=== PATIENT | female | born 1935 | race Caucasian/White ===

== ENCOUNTER 2018-05-28 13:42 | Outpatient (RCR) | payer MEDICARE, BC | END 2018-06-12 16:07 | disposition home or self-care (01) | PROVIDERS: ATTEND Internal Medicine | DX: M54.5 Low back pain (principal); Z86.73 Personal history of transient ischemic attack (TIA), and cerebral infarction without residual deficits ==

== ENCOUNTER → 2023-03-15 | Outpatient (RCR) | payer MEDICARE | END | disposition home or self-care (01) | PROVIDERS: ATTEND Nurse Practitioner Family | DX: S32.501D Unspecified fracture of right pubis, subsequent encounter for fracture with routine healing (principal); S32.9XXS Fracture of unspecified parts of lumbosacral spine and pelvis, sequela ==

== ENCOUNTER 2023-03-18 15:54 | Outpatient (RCR) | payer MEDICARE | END 2023-04-15 | disposition home or self-care (01) | PROVIDERS: ATTEND Nurse Practitioner Family | DX: S32.501D Unspecified fracture of right pubis, subsequent encounter for fracture with routine healing (principal); S32.9XXS Fracture of unspecified parts of lumbosacral spine and pelvis, sequela ==

== ENCOUNTER → 2023-04-02 | Outpatient (CLI) | payer MEDICARE ==
--- NOTE | 2023-04-02 13:38 | Diagnostic Imaging Report ---
PROCEDURE: US Renal Bilateral. TECHNIQUE: Multiple Real-time grayscale images were obtained over the kidneys in various projections bilaterally. INDICATION: Chronic kidney disease. FINDINGS: The right kidney is 8.5 cm and the left 8.7 cm. No hydronephrosis. There is either left pelviectasis versus a parapelvic cyst measuring 1.2 cm transverse. There is a 1.6 x 2.0 cm cyst in the midpole of the left renal cortex. No subcapsular or perinephric fluid collection. The urinary bladder had a volume of 182 mL with no post void residual. IMPRESSION: Simple left renal cyst. Either mild left renal pelvic dilatation without hydronephrosis versus exophytic parapelvic cyst. No stone. No vascularized or solid mass. No post void residual. Dictated by: Dictated on workstation # [id number]
== END ==
LOC: RAD 12:14
PROVIDERS: ATTEND Internal Medicine Nephrology
DX: N28.1 Cyst of kidney, acquired (principal); I12.9 Hypertensive chronic kidney disease with stage 1 through stage 4 chronic kidney disease, or unspecified chronic kidney disease; N18.31 Chronic kidney disease, stage 3a; C44.41 Basal cell carcinoma of skin of scalp and neck; M81.0 Age-related osteoporosis without current pathological fracture; R60.0 Localized edema; R53.83 Other fatigue; N31.8 Other neuromuscular dysfunction of bladder; Z86.79 Personal history of other diseases of the circulatory system
CPT/HCPCS: 76770

== ENCOUNTER → 2023-08-02 | Outpatient (CLI) | payer MEDICARE ==
[~2023-08-02] VITALS: Ht 160 cm; Wt 46.0 kg
[~2023-08-02] MED LIST: CATHETER FLUSH 10 ML SYR IVP PRN; REGADENOSON 0.4 MG/5 ML SYR IV ONE
[2023-08-02 08:46] VITALS: BP 227/87
== END ==
LOC: CARD 06:40
PROVIDERS: ATTEND Nurse Practitioner Family
DX: I25.2 Old myocardial infarction (principal)
CPT/HCPCS: 78452; 93017; A9502